=== PATIENT | female | born 1950 | race Caucasian/White ===

== ENCOUNTER → 2018-02-06 | Outpatient (CLI) | payer MEDICARE | END | disposition home or self-care (01) | LOC: ROC 16:40 | PROVIDERS: ATTEND Radiology Radiation Oncology | DX: C34.32 Malignant neoplasm of lower lobe, left bronchus or lung (principal); C67.9 Malignant neoplasm of bladder, unspecified; R91.1 Solitary pulmonary nodule; Z79.82 Long term (current) use of aspirin; Z85.51 Personal history of malignant neoplasm of bladder; Z87.891 Personal history of nicotine dependence; Z90.2 Acquired absence of lung [part of] | CPT/HCPCS: 99215; G0463 ==

== ENCOUNTER 2021-05-10 09:04 | Outpatient (CLI) | payer MEDICARE | END 2021-05-10 23:59 | disposition home or self-care (01) | LOC: ROC 09:04 | PROVIDERS: ATTEND Radiology Radiation Oncology | DX: C34.31 Malignant neoplasm of lower lobe, right bronchus or lung (principal) | CPT/HCPCS: 99214; G0463 ==